=== PATIENT | female | born 1955 | race Caucasian/White ===

== ENCOUNTER 2019-04-19 07:14 | Inpatient (IN) | payer MEDICARE, OTHER ==
[2019-04-17 12:16] LABS: BASOPHILS # (AUTO) 0.04 x10^3/uL (0-0.1); BASOPHILS % (AUTO) 1 % (0-1); EOSINOPHILS # (AUTO) 0.17 x10^3/uL (0-0.4); EOSINOPHILS % (AUTO) 3 % (1-7); LYMPHOCYTES # (AUTO) 2.32 x10^3/uL (1-3.4); LYMPHOCYTES % (AUTO) 39 % (22-44); MD NO; MEAN CORPUSCULAR HGB CONC 32.9 g/dL (32.4-35.8); MEAN CORPUSCULAR VOLUME 97.5 fL (80-100); MEAN PLATELET VOLUME 8.1 fL (7.4-10.4); MONOCYTES # (AUTO) 0.44 x10^3/uL (0.2-0.8); MONOCYTES % (AUTO) 7 % (2-9); NEUTROPHILS # (AUTO) 2.94 x10^3/uL (1.8-6.8); NEUTROPHILS % (AUTO) 50 % (42-75); PLATELET COUNT 247 x10^3/uL (130-400); RED BLOOD COUNT 5.27 x10^6/uL (3.82-5.3); RED CELL DISTRIBUTION WIDTH 13.8 % (9.6-15.2)
[2019-04-17 12:27] LABS: ALBUMIN 4.1 g/dL (3.4-5.0); ANION GAP 6 mmol/L (5-15); CALCIUM 9.1 mg/dL (8.5-10.1); CHLORIDE 104 mmol/L (98-107); CHOLESTEROL, TOTAL 111 mg/dL (140-239); CREATININE 0.83 mg/dL (0.55-1.02)
[2019-04-17 12:54] LABS: % IRON SATURATION 21 % (20-55); ALANINE AMINOTRANSFERASE 35 U/L (12-78); ALKALINE PHOSPHATASE 64 U/L (45-117); BILIRUBIN,TOTAL 0.7 mg/dL (0.2-1.0); CHOL/HDL RATIO 2.1; HDL CHOL % 47 % (28-40); HDL CHOLESTEROL (DIRECT) 52 mg/dL (40-60); IRON LEVEL 79 mcg/dL (50-170); LDL CHOLESTEROL,CALCULATED 31 mg/dL (54-169); LDL/HDL RATIO 0.6 (0.5-3.0); PREALBUMIN 19.5 mg/dL (20.0-40.0); TOTAL IRON BINDING CAPACITY 372 mcg/dL (250-450); TOTAL PROTEIN 7.3 g/dL (6.4-8.2); TRANSFERRIN 269 mg/dL (200-360); TRIGLYCERIDES 140 mg/dL (50-200); VLDL CHOLESTEROL 28 mg/dL (0-25)
[~2019-04-19] VITALS: Ht 157.5 cm; Wt 99.7 kg
[~2019-04-19 07:14] MED LIST: ASPI81TA45 PO; BUPIVACAINE/EPI 0.5% 1:200K ONE; BUPR100T11 PO; CALCIUM, MAG, ZINC PO; CART1TAB4 PO; CHOL500015 PO; CHRO1TAB6 PO; EMPA25TA PO; KRIL500C PO; LOSA50TA14 PO; METF500T17 PO; METO-93 PO; MILK500C PO; MULT-516 PO; NOVOLOG PUMP; PREG300C PO; SIMV40TA3 PO; TORS20TA2 PO; VENL150C PO; VITAMIN K PO; [UNRECOGNIZED DRUG - OTHER] PO
[2019-04-19] MEDS ORDERED: LACTATED RINGERS 1,000 ML IV SCH (07:57)
[2019-04-19 08:03] VITALS: BP 100/66
[2019-04-19] MEDS ORDERED: SCOPOLAMINE PATCH, 1.5MG PATCH.TD72 TD STA (08:09)
[2019-04-19] MEDS ORDERED: ACETAMINOPHEN 100 ML IVPB STA (08:09)
[2019-04-19] MEDS ORDERED: FENTANYL PF 250 MCG/5ML ONE ×2 (08:12→09:59)
[2019-04-19] MEDS ORDERED: MIDAZOLAM 1 MG/ML, 2ML ONE (08:12)
[2019-04-19] MEDS ORDERED: DEXAMETHASONE 4 MG/ML, 1ML ONE (08:16)
[2019-04-19] MEDS ORDERED: PROPOFOL 10 MG/ML, 20ML ONE (08:16)
[2019-04-19] MEDS ORDERED: NEOSTIGMINE 1 MG/ML, 10ML ONE (08:16)
[2019-04-19] MEDS ORDERED: ONDANSETRON 2MG/ML, 2ML ONE (08:16)
[2019-04-19] MEDS ORDERED: ROCURONIUM 10MG/ML,5ML ONE (08:16)
[2019-04-19] MEDS ORDERED: GLYCOPYRROLATE 0.2MG/1ML, 5ML ONE (08:16)
[2019-04-19] MEDS ORDERED: CEFAZOLIN 1,000 MG ONE (08:16)
[2019-04-19] MEDS ORDERED: LABETALOL 5MG/ML, 20ML IV PRN (09:30)
[2019-04-19] MEDS ORDERED: OXYcodone 5 MG/5 ML ORAL.SOL UDC PO PRN (09:30)
[2019-04-19] MEDS ORDERED: FENTANYL PF 100 MCG/2ML IV PRN (09:30)
[2019-04-19] MEDS ORDERED: MORPHINE SULFATE 4 MG/ML, 1ML IVPush PRN (09:30)
[2019-04-19] MEDS ORDERED: HYDROmorphone 2 MG/ML, 1ML IVPush PRN (09:30)
[2019-04-19] MEDS ORDERED: HALOPERIDOL 5 MG/ML IV PRN (09:30)
[2019-04-19] MEDS ORDERED: MEPERIDINE/PF 25MG/ML,1ML IVPush PRN (09:30)
[2019-04-19] MEDS ORDERED: PROMETHAZINE 25 MG/ML, 1ML IV PRN (09:30)
[2019-04-19] MEDS ORDERED: hydrALAzine 20 MG/ML, 1ML IV PRN (09:30)
[2019-04-19] MEDS ORDERED: PHENYLEPHRINE 10 MG/ML ONE (09:31)
[2019-04-19] MEDS ORDERED: SUGAMMADEX 200 MG/2 ML IVPush ONE ×2 (10:54→10:59)
[2019-04-19] MEDS ORDERED: LORazepam 2 MG/ML, 1ML IV PRN (11:00)
[2019-04-19] MEDS ORDERED: PROMETHAZINE 12.5 MG SUPP PR PRN (11:00)
[2019-04-19] MEDS ORDERED: DIPHENHYDRAMINE 50 MG/ML, 1ML IV PRN (11:00)
[2019-04-19] MEDS ORDERED: ENALAPRILAT 1.25 MG/ML, 2ML IV PRN (11:00)
[2019-04-19] MEDS ORDERED: PHENOL THROAT SPRAY BOTTLE MM PRN (11:00)
[2019-04-19] MEDS ORDERED: hydrALAzine 20 MG/ML, 1ML IVPush PRN (11:00)
[2019-04-19] MEDS ORDERED: PROMETHAZINE 25 MG/ML, 1ML IM PRN (11:00)
[2019-04-19] MEDS ORDERED: ONDANSETRON 2MG/ML, 2ML IVPush PRN (11:00)
[2019-04-19] MEDS ORDERED: SCOPOLAMINE PATCH, 1.5MG PATCH.TD72 TD ONE (11:00)
[2019-04-19] MEDS: INSULIN REGULAR 100 UNITS/ML, 3ML VIAL SQ-INSULIN SCH ×3 (11:00→21:00)
[2019-04-19 13:38] VITALS: BP 126/78
[2019-04-19] MEDS: LACTATED RINGERS 1,000 ML IV SCH ×2 (13:47→18:44)
[2019-04-19] MEDS: morphine SULFATE 10 MG/ML, 1ML IVPush PRN ×2 (16:37→18:07)
[2019-04-19 18:35] VITALS: BP 99/62
[2019-04-19 20:00] VITALS: BP 117/62
[2019-04-19] MEDS: FAMOTIDINE 20 MG/2 ML IVPush SCH (21:10)
[2019-04-20] VITALS: BP 133/74
[2019-04-20] MEDS: HYDROcodone/APAP 7.5-325MG/15ML UDC PO PRN ×7 (00:04→17:33)
[2019-04-20] MEDS: LACTATED RINGERS 1,000 ML IV SCH ×4 (00:55→16:06)
[2019-04-20 04:28] VITALS: BP 101/60
[2019-04-20 04:42] LABS: BASOPHILS # (AUTO) 0.07 x10^3/uL (0-0.1); BASOPHILS % (AUTO) 1 % (0-1); EOSINOPHILS # (AUTO) 0.06 x10^3/uL (0-0.4); EOSINOPHILS % (AUTO) 1 % (1-7); LYMPHOCYTES # (AUTO) 1.74 x10^3/uL (1-3.4); LYMPHOCYTES % (AUTO) 18 % (22-44); MD NO; MEAN CORPUSCULAR HEMOGLOBIN 32.3 pg (27.0-34.8); MEAN CORPUSCULAR HGB CONC 32.9 g/dL (32.4-35.8); MEAN CORPUSCULAR VOLUME 98.3 fL (80-100); MEAN PLATELET VOLUME 8.4 fL (7.4-10.4); MONOCYTES # (AUTO) 0.75 x10^3/uL (0.2-0.8); MONOCYTES % (AUTO) 8 % (2-9); NEUTROPHILS # (AUTO) 7.03 x10^3/uL (1.8-6.8); NEUTROPHILS % (AUTO) 73 % (42-75); PLATELET COUNT 235 x10^3/uL (130-400); RED CELL DISTRIBUTION WIDTH 13.8 % (9.6-15.2)
[2019-04-20 04:50] LABS: ALBUMIN 3.2 g/dL (3.4-5.0); ANION GAP 8 mmol/L (5-15); CALCIUM 8.5 mg/dL (8.5-10.1); CHLORIDE 107 mmol/L (98-107)
[2019-04-20] MEDS: INSULIN REGULAR 100 UNITS/ML, 3ML VIAL SQ-INSULIN SCH ×3 (07:00→16:00)
[2019-04-20] MEDS: FAMOTIDINE 20 MG/2 ML IVPush SCH (08:10)
[2019-04-20 08:59] VITALS: BP 97/57
[2019-04-20] MEDS ORDERED: LOSARTAN 50MG TABLET PO SCH (09:00)
[2019-04-20] MEDS ORDERED: ENOXAPARIN 40 MG/0.4 ML SQ SCH (09:00)
[2019-04-20] MEDS ORDERED: METOPROLOL SUCCINATE 50 MG TAB.ER.24H PO SCH (09:00)
[2019-04-20 13:43] VITALS: BP 128/67
[2019-04-20 18:45] VITALS: BP 107/57
[2019-04-20] MEDS ORDERED: FAMOTIDINE 20 MG/2 ML IVPush SCH (21:00)
== END 2019-04-20 18:30 | disposition home or self-care (01) | DRG 621 ==
LOC: ORIP 07:14 → 4NE 13:35
PROVIDERS: ADMIT Thoracic Surgery (Cardiothoracic Vascular Surgery); ATTEND Thoracic Surgery (Cardiothoracic Vascular Surgery)
PROC: 0DP64CZ Removal of Extraluminal Device from Stomach, Percutaneous Endoscopic Approach (ICD-10-PCS; 2019-04-19)
PROC: 5A09357 Assistance with Respiratory Ventilation, Less than 24 Consecutive Hours, Continuous Positive Airway Pressure (ICD-10-PCS; 2019-04-19)
PROC: 0DB64Z3 Excision of Stomach, Percutaneous Endoscopic Approach, Vertical (ICD-10-PCS; principal; 2019-04-19 09:30)
PROC: 5A09357 Assistance with Respiratory Ventilation, Less than 24 Consecutive Hours, Continuous Positive Airway Pressure (ICD-10-PCS; 2019-04-20)
DX: E66.01 Morbid (severe) obesity due to excess calories (principal); I10 Essential (primary) hypertension; G47.30 Sleep apnea, unspecified; E78.00 Pure hypercholesterolemia, unspecified; E11.9 Type 2 diabetes mellitus without complications; R33.9 Retention of urine, unspecified; K66.0 Peritoneal adhesions (postprocedural) (postinfection); Z68.41 Body mass index [BMI] 40.0-44.9, adult
CPT/HCPCS: 36415; 71046; 80048; 80053; 80061; 82040; 82306; 82607; 82728; 82962; 83540; 83550; 83970; 84134; 84425; 84466; 85025; 93005; G0378; J0131; J0690; J1100; J1650; J2250; J2405; J2704; J2710; J3010; J2270; J2370; J3490; J7120